=== PATIENT | male | born 1965 | race African-American/Black ===

== ENCOUNTER → 2017-12-29 | Outpatient (CLI) | payer OTHER ==
[~2017-12-29] VITALS: Ht 172.7 cm; Wt 95.3 kg
[~2017-12-29] MED LIST: ABILIFY10 MG PO; ALLOPURINOL 30300 M1 PO; AMLODIPINE BESY10 MG PO; ANTI-DIARR262 MG/15 PO; CLINDAMYCIN 1%60 M1 TOP; CLOTRIMAZOLE 1%30 M1 TOP; DOXYCYCLINE 10100 M1 PO; IBUPROFEN 200200 M1 PO; NEURONTIN 300300 M1 PO; PAXIL20 MG PO; TRAZODONE HCL100 MG PO; VALSARTAN320 MG PO; ZANTAC 150MG T150 MG PO
--- NOTE | ~2017-12-29 | HPC ---
[facility] [address] [address] PAIN MANAGEMENT CONSULTATION Name: PRINCESSMIRIAM PACHECOITH Room #: REG SOFIE Cali#: [id number] Admission: 12/29/17 Attend Phys: Salbador Wagner DO Discharge: Date of : 61 Report #: [id number] THIS REPORT FOR: //name// CC: FAM unknown Salbador Wagner The patient is a very pleasant 52-year-old seen in consultation [facility] the [facility] of pain in the low back, left buttock and leg. 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 He fell backwards with exacerbation of axial back pain. Pain has been problematic since that time. He rates it anywhere from 8-10 on a VAS. He describes burning, cramping, aching, throbbing, sharp pain. Pain is exacerbated bending forward, standing or carrying any heavy object. He has taken multiple NSAID agents. He has had chiropractic manipulation with some efficacy. He has had TENS type therapy with some efficacy. He notes his back occasionally "locks up." Pain in the left buttock, posterior thigh, calf to the foot. Paresthesia in his lower extremities with complication of bilateral plantar fasciitis. He does have episodic weakness and paresthesia in the left leg. He denies saddle anesthesia or bowel or bladder continence changes. REVIEW OF SYSTEMS: Complete review of systems attached to the chart and gone over with the patient. He is . He does not smoke or drink alcohol to excess. History of hypertension treated with amlodipine and valsartan. History of gastroesophageal reflux for which he takes ranitidine. Recently he had an upper GI. Some thought that he may have had gout causing his foot pain and has been started on allopurinol. He has significant PTSD, currently takes trazodone, aripiprazole and paroxetine. Gabapentin 300 mg t.i.d. with nominal efficacy. The patient works at the [employer], works in [place] and [employer]. He is currently working despite pain. Pain impact score is 32/70. PHYSICAL EXAMINATION: GENERAL: Reveals a robust 52-year-old gentleman. VITAL SIGNS: 68 inches tall, 210 pounds, BMI is 31.9 kilograms per meter squared. Blood pressure is 139/87, pulse 60 and respirations 16. NEUROLOGIC: Cranial nerves 2-12 are grossly intact. HEENT: Pupils are equal and react to light and accommodation. Extraocular muscles are intact. NECK: Cervical range of motion is modestly limited with exacerbation of axial back pain. Upper extremity strength is preserved. HEART: Regular and rhythmical without murmur. LUNGS: Clear to auscultation. MUSCULOSKELETAL: Rises from chair using armrest. He has diffuse tenderness [address] [address] PAIN MANAGEMENT CONSULTATION Name: MIRIAM SÁNCHEZ Room #: REG [facility] Cali#: [id number] Admission: 12/29/17 Attend Phys: Salbador Wagner DO Discharge: Date of : 61 Report #: [id number] across the low back. He has a modestly antalgic gait. Lumbar flexion is significantly limited about 30 degrees. Positive straight leg raise at 30 degrees on the left. Tender in the low back from about L4 down. Patellar reflex is absent on the left and 1/4 on the right. Achilles reflexes are similar. Lower extremity strength is generally preserved. Skin integument is intact. Passive rotation of the hips exacerbates some pain. Mildly positive Sho and Gaenslen's test. Range of motion of the hips is limited due to axial back pain. Diagnostic findings include MRI of the lumbar spine from 12/04/2017. Findings were compared to prior radiograph of 11/08/2017. There is some subcutaneous edema extending from L2 down to the sacrum posteriorly. Degenerative changes in the disk with diminished signal intensity moderate for age. He has degenerative changes including marginal osteophytes L1-L2 and some mild disease of the SI joints. Facet disease at L5-S1 includes mild diastasis and fluid in the joints. ASSESSMENT: 1. Lumbar radiculopathy, left L5 radicular pain by clinical exam and history. 2. Lumbosacral spondylosis without myelopathy (L5-S1 facet mediated pain), component of SI mediated pain. Recommendations discussed with the patient today about therapeutic options. RECOMMENDATIONS: 1. Continue Aleve [id number] b.i.d. 2. Lumbar epidural injection under fluoroscopy today at L5-S1. 3. Follow up in 2 weeks for reevaluation for consideration for bilateral L5-S1 facet joint injections versus SI joint injections depending on clinical exam at that time. Thank you for allowing me to participate in the patient's care. I will keep you abreast of his progress. PROCEDURE: Lumbar epidural injection under fluoroscopy. PROCEDURE NOTE: After both written and informed consent to include risk of spinal cord damage, increased pain, weakness and dural puncture, the patient was taken to the fluoroscopy suite, placed in the prone position. After sterile prep and drape, a skin wheal with lidocaine was raised. A 22-gauge epidural Tuohy needle was inserted in the midline at L5-S1 with good loss to resistance. Negative aspiration for cerebrospinal fluid or blood was noted. Then 1 mL of Omnipaque under biplanar fluoroscopy showed good spread within the epidural space. This was followed with 80 mg of triamcinolone plus 1 mL of 1.5% preservative-free Xylocaine, 0.5 mL Xylocaine was then injected to flush the [facility] [address] [place] [address] PAIN MANAGEMENT CONSULTATION Name: MIRIAM SÁNCHEZ Room #: REG [facility] Cory.#: [id number] Admission: 12/29/17 Attend Phys: Salbador Wagner DO Discharge: Date of : 61 Report #: [id number] needle; it was removed. The patient was monitored for an appropriate period of time and discharged in good and stable condition. <ELECTRONICALLY SIGNED> By: Salbador Wagner DO 12/30/17 0822 [id number] [id number] Salbador Wagner DO /nt
[2017-12-29 15:06] VITALS: BP 139/87
== END | disposition home or self-care (01) ==
LOC: PAIN 07:08
DX: M54.16 Radiculopathy, lumbar region (principal); G89.29 Other chronic pain; M47.897 Other spondylosis, lumbosacral region; M53.3 Sacrococcygeal disorders, not elsewhere classified; I10 Essential (primary) hypertension; K21.9 Gastro-esophageal reflux disease without esophagitis; Z87.19 Personal history of other diseases of the digestive system; Z79.899 Other long term (current) drug therapy; Z98.890 Other specified postprocedural states

== ENCOUNTER → 2018-01-12 | Outpatient (CLI) | payer OTHER ==
[~2018-01-12] VITALS: Ht 172.7 cm; Wt 98.4 kg
--- NOTE | ~2018-01-12 | HPC ---
[facility] [address] [place] [address] PAIN MANAGEMENT CONSULTATION Name: PRINCESSMIRIAM PACHECOITH Room #: REG Darshan Leiva#: [id number] Admission: 01/12/18 Attend Phys: Salbador Wagner DO Discharge: Date of : 61 Report #: [id number] THIS REPORT FOR: //name// CC: FAM unknown Salbador Wagner DATE OF SERVICE: 01/12/2018 The patient is a very pleasant 52-year-old being treated for lumbar radiculopathy, component of spot lumbar spondylosis without myelopathy and SI joint dysfunction. At consultation on 12/29/2017, we progressed to perform a lumbar epidural injection at L5-S1. He returns to pain clinic today noting incremental improvement of pain, still has axial back pain with occasional lancinating pain down the left leg, posterior aspect down to the foot. He does have some diffuse tenderness across the low back. We reviewed the MRI, which does show some fluid within the L5-S1 facet joints, a little bit of neural foraminal narrowing. PHYSICAL EXAMINATION: Does show positive straight leg raise on the left. Diffuse tenderness across the low back. Lower extremity strength unfortunately does remain preserved. ASSESSMENT: 1. Symptomatic lumbar radiculopathy, left L5 radicular pattern. 2. Cervical spondylosis without myelopathy. RECOMMENDATIONS: After discussion, the patient today would like to proceed with a left L5-S1 facet joint injection under fluoroscopy. I will follow up in 2-3 weeks for reevaluation. Follow up with Dr. Usman Boyd. If this affords incremental relief, we will consider repeating the left L5-S1 transforaminal epidural injection. If, however, he does not get adequate relief, would appreciate a new set of eyes to evaluate. I believe he does have a component of axial back pain, may even have a trace component of piriformis syndrome. Thank you for allowing me to participate in the patient's care. PROCEDURE: Left L5-S1 transforaminal epidural injection under fluoroscopy. DESCRIPTION OF PROCEDURE: After both written and informed consent was obtained including risk of spinal cord damage, infection, increased pain and paralysis, the patient agreed to proceed. The patient was taken to the fluoroscopy suite, placed in a prone position with appropriate abdominal bolstering. After sterile prep with ChloraPrep and sterile drape, a skin wheal with 1% Xylocaine was raised. A 22 gauge 4-1/2 inch epidural Tuohy needle was inserted. From an oblique approach into the posterior-superior aspect of the left L5-S1 neural [address] [address] PAIN MANAGEMENT CONSULTATION Name: PRINCESSMIRIAM BHARGAV Room #: REG [facility].#: [id number] Admission: 01/12/18 Attend Phys: Salbador Wagner DO Discharge: Date of : 61 Report #: [id number] foramen with continuous pressure on the glass syringe plunger for loss of resistance. Glass syringe was filled with 2 mL of 0.1 Xylocaine. The glass loss of resistance syringe was removed. A low volume extension tubing was connected, negative aspiration was accomplished for cerebrospinal fluid or blood. 1 mL of Omnipaque was injected which showed spread both within the epidural space and laterally along the nerve root. This was followed with 80 mg of triamcinolone plus 1 mL of 1.5% preservative-free Xylocaine. Needle was partially withdrawn, 0.5 mL of Xylocaine was injected to clear the needle and the needle was removed. The area was cleansed, band-aid was applied. The patient was allowed to ambulate to the recovery room, discharged in good and stable condition. <ELECTRONICALLY SIGNED> By: Salbador Wagner DO 01/13/18 0715 [id number] 1801 Salbador Wagner DO /nt
[2018-01-12 13:12] VITALS: BP 134/78
== END | disposition home or self-care (01) ==
LOC: PAIN 07:11
DX: M54.16 Radiculopathy, lumbar region (principal); G89.29 Other chronic pain; M47.892 Other spondylosis, cervical region; M53.3 Sacrococcygeal disorders, not elsewhere classified; Z79.899 Other long term (current) drug therapy; Z98.890 Other specified postprocedural states

== ENCOUNTER → 2018-08-15 | Outpatient (CLI) | payer OTHER ==
[~2018-08-15] VITALS: Ht 172.7 cm; Wt 101.7 kg
[2018-08-15 08:59] VITALS: BP 122/71
--- NOTE | 2018-08-15 09:15 | NUR ---
Pain Clinic Assessment: 1. History of Osteoarthritis: SPINE History of Rheumatoid Arthritis: Not Applicable 2. Height: 5 ft. 8 in. 172.7 cm. Weight: 224.2 lb. oz. 101.697 kg. Patient's BMI: 34.1 3. Vital Signs: BP: 122/71 Pulse: 73 Resp: 16 Temp: 02 Sat: 97 ECG Mon: 4. Pain Intensity: 8 5. Fall Risk: Dizziness: N Needs help standing or walking: N Fallen in the last 3 months: N Fall risk comments: 6. Patient on Blood Thinner: None 7. History of Hypertension: Y 8. Opioid Therapy greater than 6 weeks: N Opiate Contract Signed: 9. Risk Assessment Tool Provided: LOW RISK 10. Functional Assessment Tool: 56/ 11. Recreational Drug Use: Never Drug Type: Tobacco Use: Never Smoker Tobacco Type: Amount or Packs/day: How Many Years: Alcohol Use: No Frequency: Quant:
--- NOTE | 2018-08-22 08:29 | HPC ---
[facility] [place] [address] PAIN MANAGEMENT CONSULTATION Name: MIRIAM SÁNCHEZ [facility] #: [facility] [id number] Admission: 08/15/18 Attend Phys: Joseph Wagner DO Discharge: Date of : 61 Report #: [id number] THIS REPORT FOR: //name// CC: Rosio Wagner HISTORY OF PRESENT ILLNESS: As you know, the patient is a 53-year-old male who has been referred to our clinic for left low back pain, left lower extremity pain with paresthesias. The patient has been sent to our clinic to trial a transforaminal epidural injection under fluoroscopic guidance to address low back pain, left lower extremity symptoms due to symptomatic lumbar radiculopathy. The patient has undergone injections in the past with my partner, Dr. Salbador Wagner, due to scheduling changes. The patient was placed on my service to undergo the procedure today. He indicates today, pain level of around 8/10. He is seeing [facility]. Rosio [place] at [facility] [place] [facility] for his [facility] management. He returns today, indicating pain is exacerbated with bending, sitting, standing, lifting; improves with chiropractic manipulation, TENS unit and previous transforaminal epidural injections. He returns today, requesting next in a series of transforaminal epidural injections. ALLERGIES: No known drug allergies. CURRENT MEDICATIONS: Ibuprofen, valsartan, trazodone, ranitidine, paroxetine, gabapentin, aripiprazole, amlodipine, and allopurinol. SOCIAL HISTORY: The patient denies tobacco, alcohol, IV or illicit drug use. He is working, unaccompanied today. IMAGING: No new imaging available. PHYSICAL EXAMINATION: VITAL SIGNS: Blood pressure 122/71, pulse 73, respiratory rate 16 and unlabored. The patient is 97% on room air. Height 5 feet 8 inches tall, weight 224.2 pounds, BMI calculated 34.1. GENERAL: Well-developed, well-nourished, well-hydrated 53-year-old male appearing stated age, placing current pain score at 8/10. HEENT: Normocephalic, atraumatic. Pupils equal, round, reactive to light. EXTREMITIES: Show no clubbing, no cyanosis, no edema. MUSCULOSKELETAL: Lower extremity strength appears symmetrical 5/5, intact to light touch from L1 through S2 dermatomes. Seated straight leg raising negative. Supine straight leg raising positive on the left. Sho's test negative. Modified Gaenslen's positive for axial low back pain. ASSESSMENT: 1. Symptomatic lumbar radiculopathy. 2. Lumbosacral spondylosis with radiculopathy. [address] [address] PAIN MANAGEMENT CONSULTATION Name: MIRIAM SÁNCHEZ [facility] [id number] Admission: 08/15/18 Attend Phys: Joseph Wagner DO Discharge: Date of : 61 Report #: [id number] 3. Chronic intractable pain. PLAN: 1. The patient returns today in followup visit to undergo transforaminal epidural injection under fluoroscopic guidance to address lumbar radicular symptoms upon the L5 nerve root on the left. The patient has been advised the risks and benefits of this procedure. These risks include but are not necessarily limited to bleeding, bruising, infection, worsening pain, no relief of pain, also risk of temporary or permanent muscle weakness, temporary or permanent nerve damage, possible paralysis and . The patient states understood and wished to proceed. 2. No medication changes made at today's visit. The patient to continue current medical therapy as previously prescribed. 3. The patient was provided a note, indicating he was seen and treated in our pain clinic this morning, dated 08/15/2018. This was signed by myself and countersigned by my nurse. 4. We will see the patient back in followup visit on an as-needed basis for next in the series of transforaminal epidural injections. PROCEDURE NOTE DESCRIPTION OF PROCEDURE: L5-S1 transforaminal epidural injection under fluoroscopic guidance. This is the first procedure of the second series, the patient is undergoing. After obtaining written consent, the patient was taken back to the fluoroscopy suite, placed in a prone position with pillow under the abdomen to decrease lumbar lordosis. Skin overlying the lumbosacral area was then prepped and draped in aseptic fashion. The L5-S1 vertebrae were identified by fluoroscopy. The neural foramen (6 o'clock position of the pedicle) was then identified utilizing an oblique fluoroscopic view. The skin and subcutaneous tissue overlying the target site of injection was then anesthetized with 3 mL of 1% lidocaine. Using a "tunnel view," 22-gauge 3-1/2 inch Tuohy needle with a bent tip was advanced towards the left epidural space under fluoroscopic guidance. The final position of the needle was identified using AP and lateral views. There were no paresthesias with final positioning of the needle. After negative aspiration for heme or cerebrospinal fluid, a total of 0.5 mL of Omnipaque was injected under live AP fluoroscopy to demonstrated absence of vascular uptake. AP and lateral imaging demonstrated an excellent neurogram and epidurogram. Pain provocation by the injected contrast material was negative. After negative aspiration for heme or cerebrospinal fluid, 3 mL of a solution containing 2 mL 40 mg per mL, 80 mg of total triamcinolone and 1 mL of lidocaine 1% was injected in increments. The needle was then retracted approximately jail and the needle tract flushed with 1 mL of 1% lidocaine. A sterile bandage placed over the injection site. There were no new motor deficits present in the lower [facility] [address] [place] [address] PAIN MANAGEMENT CONSULTATION Name: MIRIAM SÁNCHEZ Room #: REG CLI [facility]#: [id number] Admission: 08/15/18 Attend Phys: Joseph Wagner DO Discharge: Date of : 61 Report #: [id number] extremities following the procedure. The heart rate, pulse oximetry and blood pressure were continuously monitored after the procedure. There were no apparent complications. The patient tolerated the procedure well and was carefully escorted to the recovery room in stable condition. After meeting discharge criteria, the patient was discharged home. <ELECTRONICALLY SIGNED> By: Joseph Wagner DO 08/22/18 0829 0718 Joseph Wagner DO /nt
== END | disposition home or self-care (01) ==
LOC: PAIN 06:44
DX: M47.27 Other spondylosis with radiculopathy, lumbosacral region (principal); G89.29 Other chronic pain; Z79.899 Other long term (current) drug therapy

== ENCOUNTER → 2019-03-20 | Outpatient (CLI) | payer OTHER ==
[~2019-03-20] VITALS: Ht 172.7 cm; Wt 96.2 kg
[2019-03-20 13:16] VITALS: BP 117/75
--- NOTE | 2019-03-20 13:37 | NUR ---
Pain Clinic Assessment: 1. History of Osteoarthritis: SPINE History of Rheumatoid Arthritis: Not Applicable 2. Height: 5 ft. 8 in. 172.7 cm. Weight: 212.0 lb. oz. 96.163 kg. Patient's BMI: 32.2 3. Vital Signs: BP: 117/75 Pulse: 60 Resp: 16 Temp: 02 Sat: 100 ECG Mon: 4. Pain Intensity: 8 5. Fall Risk: Dizziness: N Needs help standing or walking: N Fallen in the last 3 months: N Fall risk comments: 6. Patient on Blood Thinner: None 7. History of Hypertension: Y 8. Opioid Therapy greater than 6 weeks: N Opiate Contract Signed: 9. Risk Assessment Tool Provided: LOW RISK 10. Functional Assessment Tool: 56/70 11. Recreational Drug Use: Never Drug Type: Tobacco Use: Never Smoker Tobacco Type: Amount or Packs/day: How Many Years: Alcohol Use: No Frequency: Quant:
--- NOTE | 2019-03-27 14:42 | HPC ---
[facility] [place] [address] PAIN MANAGEMENT CONSULTATION Name: MIRIAM SÁNCHEZ Room #: REG [facility].#: [id number] Admission: 03/20/19 ������������������ Attend Phys: Joseph Wagner DO Discharge: ������������������ Date of : 61 Report #: [id number] THIS REPORT FOR: //name// CC: Rosio Wagner DATE OF SERVICE: 03/20/2019 REFERRING PHYSICIAN: Dr. Rosio Jackson. CHIEF COMPLAINT: Low back pain, bilateral lower extremity pain and paresthesias. HISTORY OF PRESENT ILLNESS: As you know, the patient is a 54-year-old male, returning in followup visit requesting to undergo next in the series of lumbar epidural injections under fluoroscopic guidance to address recurrent 8/10 pain. The patient indicates pain is exacerbated with standing, lifting and sitting, improves with chiropractic manipulation, percutaneous electrical stimulation and distraction, cold and heat compressing as well as epidural injections. Previous epidural injection gave 90% improvement in overall pain lasting for 4 months. He returns today in followup visit to undergo next in the series of injections in hopes of improving overall pain. ALLERGIES: No known drug allergies. CURRENT MEDICATIONS: See chart. SOCIAL HISTORY: The patient denies tobacco, alcohol, IV or illicit drug use. He is unaccompanied today. IMAGING: No new imaging available. PHYSICAL EXAMINATION: VITAL SIGNS: Blood pressure 117/75, pulse 60, respiratory rate 16 and unlabored. The patient is 100% on room air. Height 5 feet 8 inches tall, weight 212 pounds, BMI calculated 32.2. GENERAL: Well-developed, well-nourished, well-hydrated 54-year-old male appearing stated age, pain is rated today 8/10. HEENT: Normocephalic, atraumatic. Pupils equal, round, reactive to light. Extraocular muscles are intact. Sclerae nonicteric without injection. NEUROLOGIC: Cranial nerves 2-12 grossly intact. Speech fluent. The patient deemed a good historian. EXTREMITIES: Show no clubbing, no cyanosis, and no edema. MUSCULOSKELETAL: Lower extremity strength appears equal and symmetrical 5/5. Muscle bulk and tone is symmetrical in comparing left lower extremity right, [address] [address] PAIN MANAGEMENT CONSULTATION Name: MIRIAM SÁNCHEZ Room #: REG [facility].#: [id number] Admission: 03/20/19 ������������������ Attend Phys: Joseph Wagner DO Discharge: ������������������ Date of : 61 Report #: [id number] seated straight leg raising negative. Supine straight leg raising remains positive on the left. Sho's test negative. Gait normal. Modified Gaenslen's positive for axial low back pain. ASSESSMENT: 1. Symptomatic lumbar radiculopathy. 2. Lumbosacral spondylosis with radiculopathy. 3. Lumbar degeneration. 4. Facet arthropathy of the lumbar spine. 5. Chronic intractable pain. PLAN: 1. The patient returns today in followup visit requesting to undergo lumbar epidural injection under fluoroscopic guidance. As you are aware, the patient received approximately 90% improvement in overall pain with previous injection. He is experiencing bilateral symptoms at this time and wishes to make changes in the injections to address this issue. We recommend a midline lumbar epidural injection to address this issue, which allows him to provide higher level of medication, the patient is amenable. 2. The patient was advised risks and benefits of a lumbar epidural injection. These risks include but are not necessarily limited to bleeding, bruising, infection, worsening pain, no relief of pain, also risk of temporary or permanent muscle weakness, temporary or permanent nerve damage, possible paralysis and . The patient states understood and wished to proceed. 3. We will see the patient back in followup visit on an as needed basis for possible next in the series of epidural injections. We are hopeful the patient will see good and prolonged benefit with today's procedure. DESCRIPTION OF PROCEDURE: L5-S1 interlaminar epidural steroid injection under fluoroscopic guidance. This is the 2 procedure of the 2 series that the patient is undergoing. After obtaining written consent, the patient was taken back to the fluoroscopy suite, placed in a prone position with pillow under the abdomen to decrease lumbar lordosis. The skin overlying the lumbosacral area was then prepped and draped in aseptic fashion. The L5-S1 vertebral interspace was then identified by AP fluoroscopy. The skin and subcutaneous tissue overlying the target site of injection was anesthetized with 3 mL 1% lidocaine. A #20 gauge 3.5 inch Tuohy needle was then advanced under fluoroscopic guidance towards the epidural space using a midline approach. The epidural space was identified using loss of resistance to air technique. After negative aspiration for heme or cerebrospinal fluid, a total of 1 mL of Omnipaque was injected. A lumbar epidurogram was confirmed using both AP and lateral fluoroscopy. After negative aspiration for heme or cerebrospinal fluid, 5 mL of a solution [address] [address] PAIN MANAGEMENT CONSULTATION Name: MIRIAM SÁNCHEZ Room #: REG CL Cory#: [id number] Admission: 03/20/19 ������������������ Attend Phys: Joseph Wagner DO Discharge: ������������������ Date of : 61 Report #: [id number] containing 2 mL 40 mg per mL, 80 mg total triamcinolone along with 3 mL lidocaine 1% was injected in increments. Contrast spread was noted post epidural space. The needle was then retracted approximately half way and needle tract flushed with 1 mL of 1% lidocaine. Needle was then removed. There were no apparent sensory or motor deficits in the lower extremity following the procedure. A sterile bandage was placed over the injection site. The heart rate, pulse, oximetry and blood pressure were continuously monitored after the procedure. There were no apparent complications. The patient tolerated the procedure well and was carefully escorted to the recovery room in stable condition. There were no apparent complications. After meeting discharge criteria, the patient was then discharged home. ��������������������������������������������� <ELECTRONICALLY SIGNED> ���������������������������������������� By: Joseph Wagner DO ��������������������������������������������� 03/27/19 1442 0821 1203 Joseph Wagner DO /nt
== END | disposition home or self-care (01) ==
LOC: PAIN 06:51
DX: M51.16 Intervertebral disc disorders with radiculopathy, lumbar region (principal); M47.27 Other spondylosis with radiculopathy, lumbosacral region; G89.29 Other chronic pain; Z98.890 Other specified postprocedural states; Z79.899 Other long term (current) drug therapy